=== PATIENT | female | born 1940 | race Caucasian/White ===

== ENCOUNTER → 2017-12-28 | Outpatient (CLI) | payer MEDICARE, OTHER ==
[~2017-12-28] MED LIST: ACEB400C PO; AMBI10TA PO; DOXA1TAB3 PO; FISH1000 PO; HYDR200T42 PO; MIRA0.12 PO; PILO5TAB PO; REST0.05 OU; SYNT88TA PO; TELM1TAB56 PO; VITA100017 PO
[2017-12-28 13:52] LABS: HEMATOCRIT 37.3 % (35.0-46.0); HEMOGLOBIN 12.4 GM/DL (11.6-15.3); MEAN CELL VOLUME 88.8 FL (80.0-100.0); MEAN CORPUSCULAR HEMOGLOBIN 29.5 PG (27.0-34.0); MEAN CORPUSCULAR HGB CONC 33.2 % (32.0-36.0); MEAN PLATELET VOLUME 8.3 FL (7.0-11.0); PLATELET COUNT 164 TH/MM3 (150-450); RED BLOOD COUNT 4.21 MIL/MM3 (4.00-5.30); RED CELL DISTRIBUTION WIDTH 14.2 % (11.6-17.2); WHITE BLOOD COUNT 5.6 TH/MM3 (4.0-11.0)
--- NOTE | 2017-12-28 15:37 | RADRPT ---
EXAM DATE/TIME: 12/28/2017 13:56 [place] COMPARISON: No previous studies available for comparison. INDICATIONS : Wheezing and coughing since August RADIATION DOSE: 7.39 CTDIvol (mGy) MEDICAL HISTORY : Asthma,sjorgen disease,thyroid disease SURGICAL HISTORY : Cholecystectomy. ENCOUNTER: Initial ACUITY: 3 months PAIN SCALE: 0/10 LOCATION: chest TECHNIQUE: Volumetric scanning of the chest was performed. Using automated exposure control and adjustment of t he mA and/or kV according to patient size, radiation dose was kept as low as reasonably achievable to obtain optimal diagnostic quality images. DICOM format image data is available electronically for r eview and comparison. Follow-up recommendations for detected pulmonary nodules are based at a minimum on nodule size and pa tient risk factors according to Fleischner Society Guidelines. FINDINGS: LUNGS: There is no consolidation or pneumothorax. Mild scattered peripheral interstitial fibrosis is noted b ilaterally. There are multiple tiny noncalcified nodules within both lungs measuring 4 and 3 mm in th e left upper lobe as well as for millimeters within the right upper lobe and 4 and 3 mm within the ri ght middle lobe which are indeterminate. Follow-up CT of the chest in 6 months is recommended to conf irm stability. Calcified granulomas are noted within the left lower lobe. PLEURAE: There is no pleural thickening or pleural effusion. MEDIASTINUM: There is aneurysmal dilatation of the ascending thoracic aorta which measures 4.4 cm AP by 4.5 cm tra nsverse There is no mediastinal or hilar lymphadenopathy. AXILLAE: Within normal limits. No lymphadenopathy. MUSCULOSKELETAL: Degenerative changes and scoliosis of the thoracolumbar spine are noted. MISCELLANEOUS: The visualized upper abdominal organs demonstrate no acute abnormality. There are 2 cysts within the left lobe of the liver measuring 2.0 and 1.5 cm. A hiatal hernia is noted. CONCLUSION: 1. Multiple tiny noncalcified nodules within both lungs measuring 4 and 3 mm in the left upper lobe a s well as for millimeters within the right upper lobe and 4 and 3 mm within the right middle lobe whi ch are indeterminate. Follow-up CT of the chest in 6 months is recommended to confirm stability. 2. Mild scattered peripheral interstitial fibrosis is noted bilaterally. 3. Aneurysmal dilatation of the ascending thoracic aorta measuring 4.4 cm AP by 4.5 cm transverse the re 4. Hiatal hernia. 5. 2 left hepatic lobe cysts. 6. Degenerative changes and scoliosis of the thoracolumbar spine. Jomar Brooks MD on December 28, 2017 at 15:25 Board Certified Radiologist. This report was verified electronically.
[2017-12-29 00:07] LABS: ALBUMIN 3.4 GM/DL (3.4-5.0); AST (GOT) 19 U/L (15-37); BICARBONATE 26.8 MEQ/L (21.0-32.0); BLOOD UREA NITROGEN 28 MG/DL (7-18); CALCIUM 8.9 MG/DL (8.5-10.1); CHLORIDE 102 MEQ/L (98-107); CREATININE 1.34 MG/DL (0.50-1.00); GLOMERULAR FILTRATION RATE 38 ML/MIN (>89); GLUCOSE,FASTING 96 MG/DL (74-99); SODIUM (NA) 138 MEQ/L (136-145)
[2017-12-29 00:08] LABS: ALT (GPT) 17 U/L (10-53)
[2017-12-29 00:17] LABS: ALKALINE PHOSPHATASE 64 U/L (45-117); TOTAL BILIRUBIN ADULT 0.3 MG/DL (0.2-1.0); TOTAL PROTEIN 6.7 GM/DL (6.4-8.2)
[2017-12-31 19:53] LABS: A FUMIGATUS LESS THAN 0.10 kU/L; A FUMIGATUS CLASS 0; A TENUIS LESS THAN 0 kU/L; A TENUIS CLASS 0; BAHIA GRASS LESS THAN 0.10 kU/L; BAHIA GRASS CLASS 0; BERMUDA GRASS LESS THAN 0.10 kU/L; BERMUDA GRASS CLASS 0; BIRCH LESS THAN 0.10 kU/L; BIRCH CLASS 0; C HERBARUM LESS THAN 0.10 kU/L; C HERBARUM CLASS 0; CAT DANDER LESS THAN 0.10 kU/L; CAT DANDER CLASS 0; COCKROACH LESS THAN 0.10 kU/L; COCKROACH CLASS 0; COMMON PIGWEED LESS THAN 0.10 kU/L; COMMON PIGWEED CLASS 0; COMMON RAGWEED LESS THAN 0.10 kU/L; COMMON RAGWEED CLASS 0; D FARINAE LESS THAN 0.10 kU/L; D FARINAE CLASS 0; D PTERONYSSINUS LESS THAN 0.10 kU/L; D PTERONYSSINUS CLASS 0; DOG DANDER LESS THAN 0.10 kU/L; DOG DANDER CLASS 0; ELM LESS THAN 0.10 kU/L; ELM CLASS 0; IMMUNOGLOBULIN E 2 kU/L (114 OR LESS); MAPLE (BOX ELDER) LESS THAN 0.10 kU/L; MAPLE (BOX ELDER) CLASS 0; MOUNTAIN CEDAR LESS THAN 0.10 kU/L; MOUNTAIN CEDAR CLASS 0; NETTLE LESS THAN 0.10 kU/L; NETTLE CLASS 0; OAK WHITE LESS THAN 0.10 kU/L; OAK WHITE CLASS 0; P NOTATUM LESS THAN 0.10 kU/L; P NOTATUM CLASS 0; PECAN TREE LESS THAN 0.10 kU/L; PECAN TREE CLASS 0; SHEEP SORREL LESS THAN 0.10 kU/L; SHEEP SORREL CLASS 0; TIMOTHY GRASS LESS THAN 0.10 kU/L; TIMOTHY GRASS CLASS 0
== END ==
LOC: HRSP 11:58
DX: R06.2 Wheezing (principal); R06.00 Dyspnea, unspecified; R05 Cough; I10 Essential (primary) hypertension; E03.9 Hypothyroidism, unspecified
CPT/HCPCS: 36415; 71250; 80053; 82785; 84443; 85027; 86003; 94060; 94726; 94729